=== PATIENT | male | born 1995 | race Two or more races ===

== ENCOUNTER 2017-10-27 17:52 | Emergency (ER) | payer OTHER ==
[2017-10-27 17:58] VITALS: BP 120/65; PULSE 62; RESP 16; TEMP 98.1; O2SAT 97
--- NOTE | 2017-10-27 18:46 | EDPHY ---
H & P Time Seen by Provider: 10/27/17 18:32 HPI/ROS: CHIEF COMPLAINT: Dog bite left leg HISTORY OF PRESENT ILLNESS: This afternoon patient was walking along the sidewalk when another person past by him with her dog on a leash. The dog lunged and bit him on the left lateral lower leg. At the gym he noticed that there is an abrasion and presents for evaluation. REVIEW OF SYSTEMS: No foreign body sensation or weakness or numbness in the foot. PAST MEDICAL HISTORY: negative Social history: immunizations including tetanus utd, pt confirmed with his mom General Appearance: Alert and conversant, cooperative. Abrasion on the left lower leg. No surrounding erythema or bruising or swelling. No active bleeding. Normal distal motor sensory and vascular in the foot. Emergency Department course/MDM: Superficial dog bite without evidence of deep structure injury or bleeding or infection. Does not appear to require any additional vaccinations. Smoking Status: Never smoked Constitutional: Initial Vital Signs Temperature (C) 36.7 C 10/27/17 17:56 Heart Rate 62 10/27/17 17:56 Respiratory Rate 16 10/27/17 17:56 Blood Pressure 120/65 10/27/17 17:56 O2 Sat (%) 97 10/27/17 17:56 O2 Delivery Mode Room Air Allergies/Adverse Reactions: No Known Allergies Allergy (Unverified 10/27/17 17:54) Home Medications: Medication Instructions Recorded NK [No Known Home Meds] 10/27/17 MDM/Departure - Depart Disposition: Home, Routine, Self-Care Clinical Impression: Dog bite of left lower leg Condition: Good Instructions: Animal Bite (ED) Referrals: RANJEET Arredondo,. [Clinic] - As per Instructions Print Language: [place]ian
== END 2017-10-27 19:13 | disposition home or self-care (01) ==
DX: S81.852A Open bite, left lower leg, initial encounter (principal); W54.0XXA Bitten by dog, initial encounter; Y92.480 Sidewalk as the place of occurrence of the external cause; Y99.8 Other external cause status; Y93.01 Activity, walking, marching and hiking